=== PATIENT | female | born 1945 | race Caucasian/White ===

== ENCOUNTER 2024-06-26 08:20 | Inpatient (IN) | payer BC ==
[~2024-06-26] VITALS: Ht 144.8 cm; Wt 54.0 kg
[~2024-06-26 08:20] MED LIST: CITA20TA19 PO; GABA-530 PO; HYDR50TA65 PO; LEVO88TA2 PO; LORA-268 PO; OMEP10CA5 PO; RAMI10CA78 PO; ROSU10TA72 PO; VANC25SO PO
[2024-06-26 12:43] LABS: BASOPHILS % (AUTO) 0.6 % (0-1); EOSINOPHILS # (AUTO) 0.1 X10'3 (0-0.9); EOSINOPHILS % (AUTO) 1.6 % (0-6); HEMATOCRIT 43.3 % (35.0-45.0); HEMOGLOBIN 14.2 g/dl (12.0-16.0); LYMPHOCYTES # (AUTO) 1.8 X10'3 (1.1-4.8); LYMPHOCYTES % (AUTO) 23.9 % (21-51); MEAN CORPUSCULAR HGB CONC 32.9 g/dL (33.0-36.5); MEAN CORPUSCULAR VOLUME 85.3 FL (78-98); MONOCYTES # (AUTO) 0.6 X10'3 (0-0.9); MONOCYTES % (AUTO) 8.1 % (2-12); NEUTROPHILS # (AUTO) 4.9 X10'3 (1.8-7.7); NEUTROPHILS % (AUTO) 65.8 % (42-75); PLATELET COUNT 180 X10'3 (140-440); RED BLOOD COUNT 5.08 X10'6 (4.20-5.60); RED CELL DISTRIBUTION WIDTH 14.7 % (11.5-14.5); WHITE BLOOD COUNT 7.4 X10'3 (4.5-11.0)
[2024-06-26 13:02] LABS: ALBUMIN 3.7 G/DL (3.4-5.0); ANION GAP 6 (8-16); BLOOD UREA NITROGEN 11 MG/DL (7-18); BUN/CREATININE RATIO 14.7 (10.0-20.0); CALCIUM 9.5 MG/DL (8.5-10.1); CHLORIDE 105 MMOL/L (99-107); CREATININE 0.75 MG/DL (0.40-0.90); GLUCOSE 84 MG/DL (70-104); POTASSIUM 3.6 MMOL/L (3.5-5.1); PRO BRAIN NATRIURETIC PEPTIDE 1308 PG/ML (0-450); SODIUM 142 MMOL/L (135-145); TOTAL CARBON DIOXIDE 30.7 MMOL/L (24-32); eCRCL 38 ML/MIN; eGFR 75 ML/MIN
[2024-06-26] MEDS ORDERED: acetaminophen 325mg tablet PO PRN (15:55)
[2024-06-26] MEDS ORDERED: magnesium Cl slow-release 64mg tablet PO PRN (15:55)
[2024-06-26] MEDS ORDERED: magnesium sulf-water 2g/50mL 50 ML IV PRN (15:55)
[2024-06-26] MEDS ORDERED: potassium Cl 40MEQ/1/2NS 520ml 520 ML IV PRN (15:55)
[2024-06-26] MEDS ORDERED: mag hydrox/Alum hydrox/simeth 30ml oral suspension PO PRN (15:55)
[2024-06-26] MEDS ORDERED: magnesium hydroxide 30ml (MOM) UD suspension PO PRN (15:55)
[2024-06-26] MEDS ORDERED: ondansetron/PF 4mg/2ml inj IV PRN (15:55)
[2024-06-26] MEDS ORDERED: magnesium sulf-water 4G/100mL 100 ML IV PRN (15:55)
[2024-06-26] MEDS ORDERED: potassium Cl 20 mEq SR tablet PO PRN ×2 (15:55)
[2024-06-26 16:32] LABS: HEMOGLOBIN A1C 6.2 % (4.5-6.2)
[2024-06-26] MEDS: heparin, porcine 5000 units/ml vial SQ SCH (16:35)
[2024-06-26 16:53] LABS: THYROID STIMULATING HORMONE 0.35 ulU/ml (0.34-4.50)
[2024-06-26 17:21] LABS: CHOLESTEROL 133 MG/DL (0-200); HDL CHOLESTEROL 66 MG/DL (35-60); LDL CHOLESTEROL 53 MG/DL (50-100); TRIGLYCERIDES 63 MG/DL (20-135)
[2024-06-26 18:14] LABS: INR 1.1 INR; PROTHROMBIN TIME 11.1 SECONDS (9.0-12.0)
[2024-06-26 18:43] LABS: BILIRUBIN,URINE MODERATE (Neg); CLARITY,URINE CLOUDY (Clear); COLOR,URINE YELLOW (Yellow); GLUCOSE, URINE NEGATIVE (Neg); KETONES,URINE 15 mg/dl (Neg); LEUKOCYTE ESTERASE ,URINE NEGATIVE (Neg); NITRITES, URINE NEGATIVE (Neg); OCCULT BLOOD,URINE NEGATIVE (Neg); PROTEIN,URINE 30 mg/dl (Neg); UROBILINOGEN,URINE 0.2 E.U/dL (0.2-1.0)
[2024-06-26 18:54] LABS: UA COLLECTION TYPE CLN CATCH MIDSTREAM
[2024-06-26 18:55] LABS: HYALINE CASTS 0-3 /LPF (NEGATIVE)
[2024-06-26 18:56] LABS: CAL OXALATE CRYSTALS 4+ /HPF (NEGATIVE); SQUAMOUS EPITHELIAL CELL,UR NONE SEEN /LPF (FEW); WBC,URINE 0-4 /HPF (0-4)
[2024-06-26 18:57] LABS: BACTERIA,URINE FEW /HPF (Neg); MUCUS STRANDS MODERATE /LPF (Neg); RBC,URINE NONE SEEN /HPF (0-2)
[2024-06-26] MEDS: K and/or MAG REPLACEMENT MC SCH (20:00)
[2024-06-26] MEDS: docusate sod 100mg capsule PO SCH (20:00)
[2024-06-26] MEDS: PERFLUTREN PROTEIN-A MICROSPHR (Optison) 0.22 MG/ML 3ML VIAL IV ONE (20:16)
[2024-06-26] MEDS: LORazepam 0.5 MG tablet PO SCH (20:31)
[2024-06-26] MEDS: atorvastatin 20mg tablet PO SCH (20:31)
[2024-06-26] MEDS: VANCOMYCIN 125 MG/5 ML oral SOLN.RECON 5mL UD syringe (FIRVANQ) PO SCH (20:31)
[2024-06-26] MEDS: hydrOXYzine 25 MG tablet PO SCH (20:32)
[2024-06-26] MEDS: gabapentin 300mg capsule PO SCH (23:42)
[2024-06-27 02:50] LABS: BASOPHILS % (AUTO) 0.8 % (0-1); EOSINOPHILS # (AUTO) 0.2 X10'3 (0-0.9); EOSINOPHILS % (AUTO) 3.6 % (0-6); HEMOGLOBIN 13.5 g/dl (12.0-16.0); LYMPHOCYTES % (AUTO) 42.7 % (21-51); MEAN CORPUSCULAR HEMOGLOBIN 28.2 PG (27.0-31.0); MEAN CORPUSCULAR VOLUME 85.7 FL (78-98); MEAN PLATELET VOLUME 8.2 FL (7.4-10.4); MONOCYTES # (AUTO) 0.6 X10'3 (0-0.9); MONOCYTES % (AUTO) 12.3 % (2-12); NEUTROPHILS # (AUTO) 1.9 X10'3 (1.8-7.7); NEUTROPHILS % (AUTO) 40.6 % (42-75); PLATELET COUNT 163 X10'3 (140-440); RED BLOOD COUNT 4.79 X10'6 (4.20-5.60); RED CELL DISTRIBUTION WIDTH 14.8 % (11.5-14.5); WHITE BLOOD COUNT 4.6 X10'3 (4.5-11.0)
[2024-06-27 03:05] LABS: ALBUMIN 3.2 G/DL (3.4-5.0); ANION GAP 7 (8-16); BLOOD UREA NITROGEN 15 MG/DL (7-18); BUN/CREATININE RATIO 21.1 (10.0-20.0); CALCIUM 9.1 MG/DL (8.5-10.1); CHLORIDE 105 MMOL/L (99-107); CHOL/HDL RATIO 2.1 (0.00-4.99); CHOLESTEROL 129 MG/DL (0-200); CREATININE 0.71 MG/DL (0.40-0.90); GLUCOSE 107 MG/DL (70-104); HDL CHOLESTEROL 62 MG/DL (35-60); LDL CHOLESTEROL 55 MG/DL (50-100); POTASSIUM 3.7 MMOL/L (3.5-5.1); SODIUM 141 MMOL/L (135-145); TOTAL CARBON DIOXIDE 29.5 MMOL/L (24-32); TRIGLYCERIDES 98 MG/DL (20-135); eCRCL 40 ML/MIN; eGFR 80 ML/MIN
[2024-06-27] MEDS: pantoprazole 40mg Tablet.DR PO SCH (08:16)
[2024-06-27] MEDS: lisinopril 20mg tablet PO SCH (08:18)
[2024-06-27] MEDS: citalopram 20mg tablet PO SCH (08:32)
[2024-06-27] MEDS: levoTHYROXINE 88mcg tablet PO SCH (08:32)
[2024-06-27 10:00] VITALS: BP 147/64; PULSE 68; RESP 16; TEMP 97.8; O2SAT 96
[2024-06-27 10:03] LABS: D-DIMER 0.83 MG/L FEU (0-0.50)
[2024-06-27] MEDS ORDERED: nitroGLYCERIN 0.4mg SUBLingual tab SL PRN (12:25)
[2024-06-27] MEDS ORDERED: aminophylline 250mg/10ml inj. IV PRN (12:25)
[2024-06-27] MEDS ORDERED: metoprolol tartrate 1mg/ml inj IV PRN (12:25)
[2024-06-27] MEDS: furosemide 20 MG/2 ML vial IV ONE (12:26)
[2024-06-27 12:53] VITALS: BP 150/68; PULSE 72; RESP 18; TEMP 98; O2SAT 95
[2024-06-27 13:22] VITALS: RESP 18; O2SAT 95
[2024-06-27 16:48] VITALS: BP 118/68; PULSE 66; RESP 16; TEMP 98.2; O2SAT 97
[2024-06-27 18:00] VITALS: BP 120/70; PULSE 64; RESP 16; TEMP 98.1; O2SAT 92
[2024-06-27] MEDS: acetaminophen 325mg tablet PO PRN (20:26)
[2024-06-27 22:00] VITALS: BP 139/73; PULSE 68; RESP 16; TEMP 97.7; O2SAT 94
[2024-06-28] VITALS (9 sets, daily range): BP systolic 129–147; BP diastolic 58–92; PULSE 61–93; RESP 16–18; TEMP 97.1–97.5; O2SAT 94–100
[2024-06-28 06:55] LABS: BASOPHILS % (AUTO) 0.6 % (0-1); EOSINOPHILS # (AUTO) 0.1 X10'3 (0-0.9); EOSINOPHILS % (AUTO) 3.1 % (0-6); HEMATOCRIT 38.2 % (35.0-45.0); HEMOGLOBIN 12.7 g/dl (12.0-16.0); LYMPHOCYTES # (AUTO) 1.9 X10'3 (1.1-4.8); LYMPHOCYTES % (AUTO) 42.4 % (21-51); MEAN CORPUSCULAR HEMOGLOBIN 28.3 PG (27.0-31.0); MEAN CORPUSCULAR HGB CONC 33.4 g/dL (33.0-36.5); MEAN CORPUSCULAR VOLUME 84.8 FL (78-98); MEAN PLATELET VOLUME 8.2 FL (7.4-10.4); MONOCYTES # (AUTO) 0.5 X10'3 (0-0.9); MONOCYTES % (AUTO) 10.9 % (2-12); NEUTROPHILS # (AUTO) 1.9 X10'3 (1.8-7.7); PLATELET COUNT 167 X10'3 (140-440); RED CELL DISTRIBUTION WIDTH 14.8 % (11.5-14.5); WHITE BLOOD COUNT 4.5 X10'3 (4.5-11.0)
[2024-06-28 07:18] LABS: ANION GAP 4 (8-16); BLOOD UREA NITROGEN 18 MG/DL (7-18); BUN/CREATININE RATIO 20.9 (10.0-20.0); CALCIUM 8.8 MG/DL (8.5-10.1); CHLORIDE 104 MMOL/L (99-107); CREATININE 0.86 MG/DL (0.40-0.90); GLUCOSE 107 MG/DL (70-104); POTASSIUM 3.6 MMOL/L (3.5-5.1); SODIUM 139 MMOL/L (135-145); TOTAL CARBON DIOXIDE 31.2 MMOL/L (24-32); eCRCL 33 ML/MIN; eGFR 64 ML/MIN
[2024-06-28] MEDS: regadenoson 0.4mg/5ml syringe IV PRN (10:21)
[2024-06-28] MEDS ORDERED: FURO-150 PO (19:08)
== END 2024-06-28 16:30 | disposition home or self-care (01) | DRG 280 ==
LOC: ER 08:21 → ED HOLD 15:58 → ORTHO 4S 06-27 10:02
PROVIDERS: ADMIT Internal Medicine; ATTEND Internal Medicine
PROC: 4A02XM4 Measurement of Cardiac Total Activity, External Approach (ICD-10-PCS; principal; 2024-06-28)
PROC: 3E033HZ Introduction of Radioactive Substance into Peripheral Vein, Percutaneous Approach (ICD-10-PCS; 2024-06-28)
DX: I11.0 Hypertensive heart disease with heart failure (principal); I50.33 Acute on chronic diastolic (congestive) heart failure; I21.A1 Myocardial infarction type 2; E03.9 Hypothyroidism, unspecified; R73.03 Prediabetes; E78.5 Hyperlipidemia, unspecified; Z20.822 Contact with and (suspected) exposure to COVID-19; Z66 Do not resuscitate; F32.A Depression, unspecified; G47.09 Other insomnia; Z88.2 Allergy status to sulfonamides; Z90.710 Acquired absence of both cervix and uterus; Z79.899 Other long term (current) drug therapy
CPT/HCPCS: 36415; 71045; 78452; 80048; 80061; 81001; 83036; 83880; 84443; 84484; 85025; 85379; 85610; 87081; 87502; 87503; 87811; 93005; 93017; 93306; 97161; 97530; 99285; A9500; G0378; J1644; J1940; J2785; Q0177